=== PATIENT | male | born 1960 | race Caucasian/White ===

== ENCOUNTER 2023-01-22 08:37 | Emergency (ER) | payer OTHER, SELFPAY ==
--- NOTE | 2023-01-22 08:45 | ED.GENADULT ---
HPI - General Adult General Chief complaint: Upper Respiratory Infection Stated complaint: Congestion,Cough Time Seen by Provider: 01/22/23 08:45 Source: patient Mode of arrival: ambulatory Limitations: no limitations History of Present Illness HPI narrative: 62-year-old male patient presents to the [facility] with complaints of sinus and cold symptoms for the past 2 days. Patient states he has had a runny nose, itchy eyes, watery eyes and feels like it is going down to the chest with a mild cough. Patient denies any fevers, body aches or chills. Denies any chest pain or shortness of breath. Patient states he does take monleukast and Flonase on a daily basis. 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 Related Data Allergies Allergy/AdvReac Type Severity Reaction Status Date / Time Penicillins AdvReac Mild Rash Verified 01/22/23 08:43 Sulfa (Sulfonamide AdvReac Mild Rash Verified 01/22/23 08:43 Antibiotics) Review of Systems Review of Systems: CONSTITUTIONAL: Denies fever, chills, or sweats. EYES: Denies visual changes, redness, or discharge. ENT: Positive rhinorrhea, congestion, denies sore throat, or otalgia. CARDIOVASCULAR: Denies chest pain, palpitations, or edema. RESPIRATORY: positive cough , denies dyspnea. GASTROINTESTINAL: Denies abdominal pain, nausea, vomiting, or diarrhea. GENITOURINARY: Denies dysuria or hematuria. SKIN: Denies rash or itching. MUSCULOSKELETAL: Denies back pain, joint pain, or myalgia. NEUROLOGIC: Denies headache, numbness, or weakness. PSYCHIATRIC: Denies anxiety or depression. [facility] Past Medical History Medical History (Updated 01/22/23 @ 09:25 by LUNA Diop) Acute bronchitis Adult BMI 25.0-25.9 kg/sq m BMI 26.0-26.9,adult GERD (gastroesophageal reflux disease) Hyperlipidemia Seasonal allergies Surgical History Surgical History (Updated 01/22/23 @ 08:47 by LUNA Diop) H/O inguinal hernia repair History of appendectomy Family History Family History Father Hypertension Cerebrovascular accident Family history of diabetes mellitus in first degree relative Diabetes mellitus Sibling Family history of coronary artery disease Mother Hyperlipidemia Sibling No problems noted. Social History Social History Second hand tobacco smoke exposure: No Alcohol intake: current Substance use: never Substance use type: does not use Living arrangements: with family Occupation/Education: occupation Additional occupation/education comments: respiratory therapist-[employer] Comments At the time of my signature I agree with nursing past medical history, surgical, social, and family history. There is no relevant family history pertinent to the presenting complaint. Exam Narrative: GENERAL: Well-appearing, well-nourished, and in no acute distress. HEAD: Normocephalic, atraumatic. EYES: PERRLA and EOMI. ENT: Nares with erythema edema noted bilaterally, no rhinorrhea or epistaxis. Mucous membranes moist. posterior pharynx with no erythema, tonsillar enlargement, exudates or lesions present. Bilateral TMs are clear no erythema or foreign bodies the canal. NECK: Supple. No lymphadenopathy CHEST: Clear to auscultation. No respiratory distress. Patient able talk in clear complete sentences. HEART: Regular rate and rhythm. No murmur heard. Normal peripheral pulses. ABDOMEN: Soft, nontender, nondistended, normal active bowel sounds. EXTREMITIES: Normal range of motion. No edema. SKIN: Warm, dry, no rash. NEURO: No focal deficits. Alert and oriented x3. Course Course Level of Care: Express Care Visit Reevaluation(s) Reevaluation #1: Re-evaluated patient notified him he is negative for COVID. Discussed with him we will discharge him home course of steroids, additional antihista
[2023-01-22 08:50] VITALS: BP 153/93; PULSE 81; RESP 18; TEMP 36.3; O2SAT 97
== END 2023-01-22 09:28 | disposition home or self-care (01) ==
PROVIDERS: Emergency Provider Nurse Practitioner Family; PCP Family Medicine
DX: J06.9 Acute upper respiratory infection, unspecified (principal); J30.2 Other seasonal allergic rhinitis; Z20.822 Contact with and (suspected) exposure to COVID-19; K21.9 Gastro-esophageal reflux disease without esophagitis; E78.5 Hyperlipidemia, unspecified
CPT/HCPCS: 87426; 99213; C9803; G0463